=== PATIENT | female | born 1985 | race Caucasian/White ===

== ENCOUNTER 2020-06-01 03:12 | Outpatient (CLI) | payer BC, SELFPAY ==
[2020-06-01 12:53] LABS: ALT 38 U/L (14-59); AST 19 U/L (15-37); Albumin 3.9 g/dL (3.4-5.0); Alkaline Phosphatase 61 U/L (46-116); BUN 14 mg/dL (7-18); Bilirubin, Total 0.6 mg/dL (0.2-1.0); CREATININE 0.8 mg/dL (0.55-1.02); Calcium 8.8 mg/dL (8.5-10.1); Calculated LDL 51 mg/dL (<100); Chloride 106 mmol/L (98-107); Cholesterol 138 mg/dL (<200); Glucose 87 mg/dL (74-106); HDL Cholesterol 81 mg/dL (40-60); Potassium 3.9 mmol/L (3.5-5.1); Sodium 143 mmol/L (136-145); TSH (W/Ref FT4) 1.11 uIU/mL (0.36-3.74); Total Protein 7.4 g/dL (6.4-8.2); Triglyceride 33 mg/dL (<150)
== END 2020-06-01 03:13 | disposition home or self-care (01) ==
LOC: LBO 03:12
DX: Z00.00 Encounter for general adult medical examination without abnormal findings (principal); R00.2 Palpitations; R53.83 Other fatigue; Z13.220 Encounter for screening for lipoid disorders
CPT/HCPCS: 36415; 80053; 80061; 84443

== ENCOUNTER 2021-09-19 21:05 | Outpatient (REF) | payer BC, SELFPAY ==
[2021-09-19 20:50] LABS: Bilirubin Negative (Negative); Blood Large (Negative); Clarity Sl Cloudy (Clear); Glucose Negative (Negative); Ketones Negative (Negative); Leukocyte Esterase Moderate (Negative); Nitrite Negative (Negative); Urobilinogen 0.2 EU/dL (Up TO 0.2); pH 6.5 (5-8)
[2021-09-19 21:09] LABS: Epithelial Cells Few HPF (Negative); WBC >50 HPF (0-5)
[2021-09-19 21:10] LABS: Bacteria Few HPF (Negative); C & S Indicated? C&S Done As Ordered; Casts Negative LPF (Negative); Crystals Negative HPF (Negative); Mucus Negative (Negative)
== END 2021-09-19 21:06 | disposition home or self-care (01) ==
LOC: LBN 21:05
PROVIDERS: Visit Provider Nurse Practitioner Family
DX: N39.0 Urinary tract infection, site not specified (principal)
CPT/HCPCS: 87077; 81003; 81015; 87086; 87186

== ENCOUNTER 2022-01-11 02:19 | Outpatient (CLI) | payer BC, SELFPAY ==
--- NOTE | 2022-01-11 13:30 | DI.RAD_ITS ---
Exam(s) XR WRIST RT COMPLETE EXAM: XR WRIST RT COMPLETE CLINICAL HISTORY: CHRONIC RT WRIST JT PAIN, M25.531, LIKELY RELATED TO EDS TECHNIQUE: COMPARISON: No exams were available for comparison FINDINGS: Four views were obtained. There is an ulnar plus variance with apparent dorsal subluxation of the ul na at the radioulnar joint. No other significant abnormality of alignment seen. No bony abnormality seen. IMPRESSION: RADIATION DOSE DELIVERED: Total DLP
--- NOTE | 2022-01-11 13:52 | DI.RAD_ITS ---
Exam(s) XR HIP PELVIS ADULT BL EXAM: XR HIP PELVIS ADULT BL CLINICAL HISTORY: CHRONIC BILAT HIP PAIN, M25.551, M25.552, SACRAL PAIN, H/O EDS TECHNIQUE: COMPARISON: No exams were available for comparison FINDINGS: Three views were obtained. Cartilaginous joint spaces of the hips are well maintained. No bony or s oft tissue abnormality seen. IUD noted in pelvic midline. IMPRESSION: RADIATION DOSE DELIVERED: Total DLP
== END 2022-01-11 02:39 ==
LOC: DI 02:20
PROVIDERS: Visit Provider Nurse Practitioner Family
DX: M25.551 Pain in right hip (principal); M25.552 Pain in left hip; R93.6 Abnormal findings on diagnostic imaging of limbs
CPT/HCPCS: 73521; 73110

== ENCOUNTER 2022-07-20 00:22 | Outpatient (CLI) | payer BC, SELFPAY ==
--- NOTE | 2022-07-20 08:30 | DI.DEXA_ITS ---
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 No compression deformities identified. Left hip: Total T-Score: -0.5 Total Z-Score: -0.4 T- and Z-scores: Within normal limits. Lumbar Spine: Total T-Score: -0.9 Total Z-Score: -0.9 T- and Z-scores: Within normal limits. IMPRESSION: No evidence of osteoporosis.
== END 2022-07-20 00:42 ==
PROVIDERS: PCP Nurse Practitioner Family; Visit Provider Nurse Practitioner Family
DX: Q79.60 Ehlers-Danlos syndrome, unspecified (principal); Z13.820 Encounter for screening for osteoporosis
CPT/HCPCS: 77080

== ENCOUNTER 2023-04-02 04:59 | Outpatient (CLI) | payer BC, SELFPAY ==
[2023-04-02 09:34] LABS: Abs Immature Grans 0.01 10^3/uL (0.0-0.06); Absolute Basophil Count 0.04 10^3/uL (0.0-0.2); Absolute Eosinophil Count 0.04 10^3/uL (0.0-0.7); Absolute Lymphocyte Count 1.79 10^3/uL (1.2-3.4); Absolute Monocyte Count 0.35 10^3/uL (0.1-0.8); Absolute Neutrophil Count 2.94 10^3/uL (1.2-6.7); Basophils % 0.8; Eosinophils % 0.8; HGB 13.7 g/dL (11.2-15.7); Immature Grans % 0.2; Lymphocytes % 34.6; MCH 30.2 pg (27.0-33.0); MCHC 33.4 % (32.0-36.0); MCV 90 fL (80-95); MPV 8.3 fL (8.0-11.0); Monocytes % 6.8; Neutrophils % 56.8; Platelet Count 212 10^3/uL (130-400); RBC 4.54 10^6/uL (3.93-5.22); RDW 12.4 % (11.7-14.6); RDW-SD 41.1 fL; WBC 5.17 10^3/uL (4.4-10.8)
== END 2023-04-02 05:00 | disposition home or self-care (01) ==
LOC: LBO 04:59
PROVIDERS: PCP Nurse Practitioner Family; Visit Provider Obstetrics & Gynecology
DX: Z01.818 Encounter for other preprocedural examination (principal)
CPT/HCPCS: 36415; 86850; 86900; 86901; 85025

== ENCOUNTER 2023-04-03 10:52 | Day surgery (SDC) | payer BC, SELFPAY ==
[2023-04-03] VITALS (8 sets, daily range): BP systolic 93–104; BP diastolic 57–78; PULSE 53–82; RESP 12–22; TEMP 36.6–36.7; O2SAT 100; BMI 22.4
[2023-04-03] MEDS: Lactated Ringers 1,000 ML 125 ML IV (11:25)
--- NOTE | 2023-04-03 12:03 | W.ANESPRE ---
General Info Date of Service Date Performed: 04/03/23 Height: 5 ft 8 in Weight: 66.7 kg Body Mass Index (BMI): 22.4 Surgical Procedure: Operation Date: 04/03/23 12:40 Proposed Procedure Side Surgeon p Salpingectomy Laparoscopic Bilateral Re Kingston MD s Removal of IUD Re Kingston MD Meds Allergies and Home Medications Allergies Allergy/AdvReac Type Severity Reaction Status Date / Time influenza virus vaccine tvs AdvReac Mild rash Verified 04/03/23 11:12 (65 yr and up) [From Fluad (65yr+)(PF)] vaccine adjuvant emulsion AdvReac Mild rash Verified 04/03/23 11:12 [id number] [From Fluad (65yr+)(PF)] Home Medication Medication Instructions Recorded ibuprofen 200 mg tablet (Ibuprofen 600 mg PO PRN PRN 03/24/16 IB) levonorgestrel 21 mcg/24 hours (8 03/24/16 yrs) 52 mg intrauterine device (Mirena) dextroamphetamine-amphetamine ER 20 mg PO DAILY Transfer- prefer no 08/08/21 20 mg 24hr capsule,extend release further refills after 08/08/21 #30 caps melatonin 3 mg capsule 3 mg PO HS PRN 04/03/22 escitalopram oxalate 10 mg tablet 10 mg PO DAILY 02/08/23 (Lexapro) loratadine 10 mg tablet (Claritin) 10 mg PO DAILY 04/02/23 Current Visit Medications: Current Medications Generic Name Dose Route Start Last Admin Trade Name Freq PRN Reason Stop Dose Admin Ringer's Solution 1,000 mls @ 125 mls/hr 04/03/23 06:00 04/03/23 11:25 IV 04/03/23 23:59 125 mls/hr INFUSION JUAN Administration IV Miscellaneous Supplies 1 each 04/03/23 06:00 Iv Access IV 04/03/23 23:59 DIRECTED JUAN Sodium Chloride 0 ml 04/03/23 06:00 Normal Saline Flush 10 Ml Syr IV 04/03/23 23:59 PRN PRN Sodium Chloride 0 ml 04/03/23 06:00 Normal Saline 10 Ml Vial IJ 04/03/23 23:59 DIRECTED PRN Sterile Water 0 ml 04/03/23 06:00 Water,Injection,Sterile 10 Ml Vial IJ 04/03/23 23:59 DIRECTED PRN PFSH Active Problems Active Problems: Problem Status Onset Code Subluxation of distal radial-ulnar joint S63.013A Knee pain, left M25.562 ADD (attention deficit disorder) F98.8 Sleep disorder G47.9 Depression with anxiety 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 states she had a brief spell but never turned into anything more. Headache (~04/01/14) Tobacco Smoking/Tobacco Use Status: Current-Occasional Tobacco Type: cigarettes Passive smoking exposure: Yes Second hand exposure: Yes Alcohol Alcohol Intake: current Alcohol intake frequency: a few times a month Alcohol type: hard liquor Substance Use Substance use: Occasionally Substance use type: marijuana Counseling provided: none Vital Signs and Lab Results Vital Signs Most Recent Vital Signs in EMR: Most Recent Vital Signs Temp Pulse Resp BP Pulse Ox 36.7 C 82 16 93/78 L 100 04/03/23 11:00 04/03/23 11:00 04/03/23 11:00 04/03/23 11:00 04/03/23 11:00 Point of Care Results Point of Care Results: POC- Test(urine) Negative 04/03/23 11:24 Lab Results Blood Type / Crossmatch: Patient ABO/Rh B Positive 04/02/23 Antibody Screen NEGATIVE 04/02/23 Complete Blood Count: White Blood Count 5.17 10^3/uL (4.4-10.8) 04/02/23 09:24 Red Blood Count 4.54 10^6/uL (3.93-5.22) 04/02/23 09:24 Hemoglobin 13.7 g/dL (11.2-15.7) 04/02/23 09:24 Hematocrit 41.0 % (36.0-46.0) 04/02/23 09:24 Platelet Count 212 10^3/uL (130-400) 04/02/23 09:24 Complete Metabolic Panel: No Data to Display Liver Function Panel: No Data to Display Coagulation Panel: No Data to Display Cardiac Panel: No Data to Display Arterial Blood Gas: No Data to Display Venous Blood Gas: No Data to Display Pancreas Panel: No Data to Display Thyroid Panel: No Data to Display Infectious Disease: No Data to Display Blood Cultures: No Data to Display Toxicology Panel: No Data to Display Panel: No Data to Display Imaging and Studies Imaging and Studies Study information below may be from another EMR and interpreted by another provider. Please see original notes in EMR for more complete details. Echocardiogram Summary: 03/30: LVEF 65-70%. no WMA. no valve issues. Anesthesia Assessment and Plan Anesthesia History Personal History: No History of Anesthesia Complications Family History: No Family History of Anesthesia Complications Exercise Tolerance Exercise Tolerance: Metabolic Equivalents>4 Pertinent Negatives Pertinent Negatives: No Symptoms of GERD, No Major Cardiovascular Symptoms or Complaints, No Major Pulmonary Symptoms or Complaints and No History of CVA/TIA Cardiac & Pulmonary Exam Cardiac Exam: Normal S1/S2 Heart Sounds Pulmonary Exam: Clear Bilateral Breath Sounds Implantable Cardiac Device Does patient have a Pacemaker or an ICD?: No Airway Exam Known Difficult Airway: No Mallampati Class: 2 Mouth Opening: Normal (> 3cm) Thyromental Distance: Greater than 3 cm Neck Range of Motion: Full ROM Neck Circumference: Normal Teeth Condition: Normal Dentition ASA Classification ASA Score: ASA 2 Emergency Case?: No NPO Status NPO Status: NPO Clears >2 hours, Solids >8 hours Status Status: Negative HCG Anesthesia Plan Resuscitation Status: Full Code Anesthesia Technique: General Anesthesia Airway Planned: Endotracheal Tube Monitors Used: Standard Monitors Preoperative Comments:: 37 yo female for lap salping. Sig PMHx: EDS/POTS, depression/anxiety, Raynaud's, headache. smoker, occ EtOH/cannabis.
--- NOTE | 2023-04-03 14:27 | FALL_PTH ---
PATIENT: Lavern Breen LOC: [facility] U#:[id number] AGE/SX: 37/F ROOM: RE04/03/[address]: Re Kingston MD : 1985 BED: DIS: 04/03/2023 SPEC #: [id number] RECD: 04/03/23 17:18 STATUS: PAO REJesus #: [id number] RENAY: 04/03/23 14:[address]: Re Kingston DEPT: Surgical Specimen RECD BY: Swati Gonzalez ENTERED: 04/03/23 17:20 SP TYPE: Fall OTHR DR: KENNY ORTIZ, WILFREDO Tissues: 1 - FALLOPIAN TUBE (STERILIZATION) 2 - FALLOPIAN TUBE (STERILIZATION) Procedures: GROSS AND MICRO LEVEL 2 Comments: [id number]
[2023-04-03] MEDS: Bupivacaine 0.25% Pres-Free 30 ML VIAL (14:46)
--- NOTE | 2023-04-03 15:00 | W.PM.OP ---
Date of service: 04/03/23 Time of Service: 14:00 Operative Note Operative Note PRE-OP DIAGNOSIS: desires permanent sterilization POST-OP DIAGNOSIS: same PROCEDURE: Laparoscopic bilateral salpingectomy with IUD removal SURGEON: Re Kingston ASSISTING SURGEON: Mari Haney Refer to Anesthesia Record ESTIMATED BLOOD LOSS: 20 COMPLICATIONS: None Patient was transported to: PACU Patient's condition: stable Indications: Pt with desired parity. Counseled on other options. Findings: Normal appearing external genitalia, vagina and cervix. Normal appearing uterus, ovaries and tubes. No obvious abnormalities of the lower abdomen and pelvis. Procedure Description: After informed consent was signed the patient was taken to the operating room and given general anesthesia.? SCDs were placed on her legs.? She was prepped and draped in the dorsal lithotomy position in the [facility].? Her bladder was drained of urine prior to arrival in the OR. A speculum was placed into the vagina to expose the cervix. The IUD strings were grasped and the IUD was easily removed intact. A HexAirbotlka manipulator was placed into the cervix. The speculum was removed. Gloves were changed and attention was turned to the abdomen. The infraumbilical fold was grasped and injected with 0.25% marcaine with epinephrine. A 5mm incision was made in the infraumbilical fold with the scalpel. A hemostat was used to bluntly dissect the subcuticular layers. The fascia was grasped with jay clamps and incised. The incision was extended with blunt pressure. The peritoneum was grasped and incised with metzembaum scissors. The visiport was used to enter the abdomen under direct visualization. Once entrance to the abdominal cavity was confirmed the CO2 was turned on and the abdomen was insufflated. Two lateral 5mm ports were then placed under direct visualization. The left tube was identified and followed to the fimbriated end. The tube was grasped and elevated and the mesosalpinx was clamped, cauterized and cut with the ligasure device. The was continued along the length of the tube. The proximal end of the tube was then transected with the ligasure. Good hemostasis was noted. The right tube was then identified and followed to the fimbriated end. The tube was grasped and elevated and the mesosalpinx was clamped, cauterized and cut with the ligasure device. The was continued along the length of the tube. The proximal end of the tube was then transected with the ligasure. Good hemostasis was noted on both sides. The tubes were removed individually through the ports and noted to be intact. The ports were removed. The gas was released from the abdomen. The skin incisions were then closed with 4-0 vicryl. Mastisol and steristrips were placed. The manipulator was removed. The patient was placed back into the supine position.? She was moved to the stretcher and taken to the recovery room in stable condition.
--- NOTE | 2023-04-03 15:15 | W.ANESPOSTOP ---
Postoperative Evaluation Date, Time and Location Date Performed: 04/03/23 Time Performed: 15:15 Patient Location: PACU Vital Signs Most Recent Imported Vital Signs: Most Recent Vital Signs Temp Pulse Resp BP Pulse Ox 36.7 C 82 16 93/78 L 100 04/03/23 11:00 04/03/23 11:00 04/03/23 11:00 04/03/23 11:00 04/03/23 11:00 Assessment Mental Status: Awake (Alert & Oriented to Patient Baseline) Airway and Respiratory Function: Patent airway with normal (patient baseline) respiratory exam Cardiovascular Function: Hemodynamically Stable Hydration Status: Adequately Hydrated Nausea & Vomiting: No Nausea or Vomiting Pain: Pain is tolerable per patient Peripheral Nerve Block: Patient did not receive a nerve block
--- NOTE | 2023-04-03 17:48 | DSE_ITS ---
Date of service: 04/03/23 Time of Service: 15:00 Discharge Plan Disposition Patient Disposition: Home Discharge Details Attending Provider: Re Kingston Primary Care Provider: KENNY ORTIZ Home Meds and New Rx's Prescriptions: No Action escitalopram oxalate [Lexapro] 10 mg tablet 10 mg PO DAILY dextroamphetamine-amphetamine 20 mg capsule,extended release 24hr 20 mg PO DAILY MDD 20mg Qty: 30 0RF Patient Comments: increased to 25mg melatonin 3 mg capsule 3 mg PO HS PRN Mirena 1 EACH intrauterine device ibuprofen [Ibuprofen IB] 200 MG tablet 600 mg PO PRN PRN loratadine [Claritin] 10 mg tablet 10 mg PO DAILY Discharge Instructions Stand Alone Forms: Anesthesia Discharge Inst., D[facility] ([facility]) Referrals: Re Kingston MD [ [facility] STAFF PHYSICIAN] - 04/12/23 3:20 pm Activity:: Activity as Tolerated Remove Dressings/Wound Care:: 24 hours Shower/Bathe:: 24 hours Diet:: As Tolerated Discharge Orders Discharge Orders: Discharge Order (Routine); Ordered 04/03/23 Ordered By: Re Kingston Discharge Data Discharge Date/Time-TO BE ENTERED AT DEPARTURE: 04/03/23 16:36 DS: Summary Time Spent with Patient providing and/or coordinating discharge services: Less than 30 minutes Status at Discharge Functional status at discharge: independent ambulation Overall status at discharge: patient is back to baseline Mental Status: mental status grossly normal Speech and Movement: speech and movement normal Mood: congruent mood Affect: normal affect Quality:SDOH Health Related Social Needs: No Data to Display Exam Psych Mental Status: mental status grossly normal Speech and Movement: speech and movement normal Mood: congruent mood Affect: normal affect DS: Data Vitals/I&O Vitals and I&O: Vital Signs Temperature 98.1 F 04/03/23 16:10 Pulse 60 04/03/23 16:10 Pulse Rhythm Regular 04/03/23 11:00 Respiratory Rate 16 04/03/23 16:10 Respiratory Depth Normal 04/03/23 11:00 Blood Pressure 99/57 L 04/03/23 16:10 Pulse Oximetry 100 04/03/23 16:10 Respiratory End-tidal CO2 41 04/03/23 15:31 Oxygen Delivery Method Room Air 04/03/23 16:10 Oxygen Flow Rate 0 04/03/23 11:00 Pain Level 3 04/03/23 16:10 Intake & Output 04/02/23 04/03/23 04/03/23 23:59 11:59 23:59 Intake Total 970.833 / 970.833 Balance 970.833 / 970.833 Weight 147 lb 0.773 oz 147 lb 0.773 oz Intake: IV 820.833 / 820.833 Oral 150 / 150 Other: Emesis Description None PFSH All Active Problems Subluxation of distal radial-ulnar joint (Acute) Knee pain, left (Chronic) ADD (attention deficit disorder) (Chronic) Initial Dx by [facility] - treating since 08/15/2020 Sleep disorder (Chronic) Depression with anxiety (Acute) Mayco-Danlos syndrome (Acute) Insomnia (Acute ~09/26/15) Fatigue (Acute ~09/26/15) Back pain (Chronic ~09/26/15) low lumbar Hip pain (Chronic ~04/22/14) left Arthralgia (Acute ~04/01/14) Medical History Heart palpitations Pt. states she had a brief spell but never turned into anything more. Sterilization consult POTS (postural orthostatic tachycardia syndrome) Raynauds syndrome Eating disorder Headache (~04/01/14) Family History Mother Alcohol abuse Hyperlipidemia Father Alcohol abuse Depression Diabetes Sister Depression Sister Depression Sister Depression Brother Alcohol abuse Depression Brother Alcohol abuse Depression Brother Depression Maternal Grandfather , 90's Hyperlipidemia Paternal Grandfather Depression Maternal Grandmother , 90's Cancer Paternal Grandmother No problems noted. Social History Smoking/Tobacco Use Status: Current-Occasional Tobacco Type: cigarettes Tobacco: How many years used: 15 Quit status: considering quitting Second Hand Exposure: Yes Smoking risk assessment performed?: Yes Alcohol Intake: current Alcohol Intake frequency: a few times a month Alcohol type: hard liquor Drug use: Occasionally Substance use type: marijuana Counseling provided: none Caregiver/Support person: No Household members: significant other and children Housing: house Communication Needs: None Do you need help understanding health information?: Never Pets and animals: Yes Pets and animals: dog(s) Sexually active: Yes Do you think of yourself as: bisexual Current gender identity: female What is your relationship status?: living with partner How often do you talk on the phone with friends or family?: once per week How often do you get together with friends or relatives?: never Do you belong to any clubs or organized social groups?: no Panel score (0-1 are the most socially isolated patients): 1 What type of physical activity do you participate in: walking, weight lifting, resistance training and yoga Duration: 45-60 minutes/day Frequency: daily Mohini/Hinduism: None Special mohini needs: No Seatbelt use: always Helmet use: Yes Helmet use: always Drive intox or ride w/intox stock car driver: No Do you feel safe at home: Yes Do you feel safe in your relationship?: Yes Time Spent with Patient Time Spent with Patient: <45 minutes Time was spent: preparing to see the patient(eg.review tests), obtaining and/or reviewing separately otained hiistory, referring, communicating with other health care technician and counseling the patient
== END 2023-04-03 16:36 | disposition home or self-care (01) ==
PROVIDERS: PCP Nurse Practitioner Family; Visit Provider Obstetrics & Gynecology
PROC: (CPT 58661; principal; 2023-04-03 12:30)
PROC: (CPT 58661; 2023-04-03 12:30)
DX: Z30.2 Encounter for sterilization (principal); I73.00 Raynaud's syndrome without gangrene; G90.A Postural orthostatic tachycardia syndrome [POTS]; F17.210 Nicotine dependence, cigarettes, uncomplicated; F12.90 Cannabis use, unspecified, uncomplicated
CPT/HCPCS: 58661; 58301; 81025; 88302; J0131; J0665; J1100; J1885; J2001; J2250; J2405; J2704; J3475

== ENCOUNTER → 2023-04-15 15:03 | Outpatient (CLI) | payer BC, SELFPAY ==
--- NOTE | 2023-04-15 15:49 | DI.RAD_ITS ---
Exam(s) XR LUMBAR SPINE COMPLETE EXAM: XR LUMBAR SPINE COMPLETE CLINICAL HISTORY: DINESH-DANLOS SYNDROME Q79.60 DIFFICULTY PALPATING L3 L4 L5, PRIOR TO. TECHNIQUE: 2D digital imaging was performed. Five views. COMPARISON: CR XR HIP PELVIS ADULT BL from 01/11/2022 CR XR DEXA BONE DENSITY W/WO TAY from 07/20/2022 FINDINGS: BONES: No fracture or destructive lesion. Unilateral left L5 spondylolysis. Vertebral body heights are maintained. Minimal facet hypertrophy identified at L5-S1. DISKS: Intervertebral disc spaces are maintained. ALIGNMENT: Lumbar spinal alignment is within normal limits. SOFT TISSUE: Normal. IMPRESSION: Unilateral L5 spondylolysis. No spondylolisthesis. Disc spaces are maintained. DATA REPOSITORY: RADIATION DOSE DELIVERED:
== END ==
PROVIDERS: PCP Nurse Practitioner Family; Visit Provider Nurse Practitioner Family
DX: M43.16 Spondylolisthesis, lumbar region (principal)
CPT/HCPCS: 72110

== ENCOUNTER 2023-08-12 11:15 | Emergency (ER) | payer BC, SELFPAY ==
[2023-08-12 11:19] VITALS: BP 109/72; PULSE 73; RESP 16; TEMP 36; O2SAT 100
--- NOTE | 2023-08-12 12:36 | NUR.NOTE ---
Referral given to Care Management to [facility] [place] [facility] [place] history teresita dowling with recurrent jaw dislocations for next available. Nursing Note:
[2023-08-12 12:46] VITALS: BP 109/72; PULSE 73; RESP 16; TEMP 36; O2SAT 100
--- NOTE | 2023-08-12 15:15 | ED.GENADUL_ITS ---
Discharge Plan Disposition Patient Disposition: Home Discharge Details Clinical Impression: Jaw pain, Mayco-Danlos syndrome Primary Care Provider: KENNY ORTIZ ED Provider: Lukas Reynoso Home Meds and New Rx's Prescriptions: No Action escitalopram oxalate [Lexapro] 10 mg tablet 10 mg PO DAILY dextroamphetamine-amphetamine 20 mg capsule,extended release 24hr 25 mg PO DAILY Patient Comments: increased to 25mg melatonin 3 mg capsule 3 mg PO HS PRN ibuprofen [Ibuprofen IB] 200 MG tablet 600 mg PO PRN PRN loratadine [Claritin] 10 mg tablet 10 mg PO DAILY amitriptyline 10 mg tablet 10 mg PO DAILY famotidine 20 mg tablet 10 mg PO BID Discharge Instructions Additional Instructions: * TAKE Tylenol or Motrin as needed for pain * Wearing dental guard or David wrap may be helpful particularly while sleeping * a referral has been sent to [facility] for follow-up, they will contact you for appointment Discharge Data Discharge Date/Time-TO BE ENTERED AT DEPARTURE: 08/12/23 12:49 HPI General Date/Time Provider Initiated Documentation: 08/12/23 11:57 . Limitations to Documentation: no limitations . Information obtained by: patient . HPI Narrative: 37-year-old female with past medical history of Mayco-Danlos syndrome presents for evaluation of left-sided jaw pain. She reports that she has a history of frequent jaw dislocations and she is worried that there may be an issue with her jaw at this time. She reports that it has been bothering her for the last few days. She is eating and drinking normally. She has no difficulty talking, but states that she does not feel like she can open her mouth widely is normal. Related Data Home Medications Medication Instructions Recorded Confirmed ibuprofen 200 mg tablet (Ibuprofen 600 mg PO PRN PRN 03/24/16 08/12/23 IB) melatonin 3 mg capsule 3 mg PO HS PRN 04/03/22 08/12/23 escitalopram oxalate 10 mg tablet 10 mg PO DAILY 02/08/23 08/12/23 (Lexapro) loratadine 10 mg tablet (Claritin) 10 mg PO DAILY 04/02/23 08/12/23 dextroamphetamine-amphetamine ER 25 mg PO DAILY Transfer- prefer no 04/12/23 08/12/23 20 mg 24hr capsule,extend release further refills after 08/08/21 amitriptyline 10 mg tablet 10 mg PO DAILY 08/12/23 08/12/23 famotidine 20 mg tablet 10 mg PO BID 08/12/23 08/12/23 Allergies Allergy/AdvReac Type Severity Reaction Status Date / Time influenza virus vaccine tvs AdvReac Mild rash Verified 08/12/23 11:21 (65 yr and up) [From Fluad (65yr+)(PF)] vaccine adjuvant emulsion AdvReac Mild rash Verified 08/12/23 11:21 [id number] [From Fluad (65yr+)(PF)] General Stated Complaint: DentalOral TONE: 4 Exam Narrative Exam Narrative: Review of Systems: All systems reviewed & are unremarkable except as noted in HPI and below Well-developed, no acute distress NCAT HEENT exam unremarkable, no appreciated mandible dislocation seems to have full range of motion without limitation PERRL, normal conjunctiva RRR Unlabored respiratory effort Nondistended abdomen Extremities w/o deformity, no cyanosis, no edema No rashes or lesions. no focal neurologic deficits Appropriate mood and affect Course Vital Signs Vital signs: Vital Signs Temperature 36.0 C L 08/12/23 11:19 Pulse 73 08/12/23 11:19 Respiratory Rate 16 08/12/23 11:19 Blood Pressure 109/72 08/12/23 11:19 Pulse Oximetry 100 08/12/23 11:19 Temperature 36.0 C L 08/12/23 12:46 Temperature Source Temporal Artery Scan 08/12/23 12:46 Pulse 73 08/12/23 12:46 Respiratory Rate 16 08/12/23 12:46 Respiratory Effort Normal, Non-Labored 08/12/23 11:23 Blood Pressure 109/72 08/12/23 12:46 Blood Pressure Position Sitting 08/12/23 12:46 Pulse Oximetry 100 08/12/23 12:46 Oxygen Delivery Method Room Air 08/12/23 12:46 Oxygen Flow Rate 0 08/12/23 12:46 Medical Decision Making Emergent evaluation of left-sided jaw pain. Patient reports history of dislocation. She states that she recently dislocated and relocated by herself as she usually does but reports ongoing pain for the last 2 days. On my examination I do not appreciate that the jaw remains dislocated, there seems to be normal and appropriate range of motion still intact. My suspicion is that she has some ongoing going degeneration in the joint with these recurrent dislocations. Advised Tylenol and I have referred her to [facility] for follow-up. Medical Records Medical records reviewed: Yes I reviewed the patient's medical records. Quality:[facility] Health Related Social Needs: No Data to Display PFSH All Active Problems Jaw pain (Acute) Subluxation of distal radial-ulnar joint (Acute) Knee pain, left (Chronic) ADD (attention deficit disorder) (Chronic) Initial Dx by [facility] - treating since 08/15/2020 Sleep disorder (Chronic) Depression with anxiety (Acute) Mayco-Danlos syndrome (Acute) Insomnia (Acute ~09/26/15) Fatigue (Acute ~09/26/15) Back pain (Chronic ~09/26/15) low lumbar Hip pain (Chronic ~04/22/14) left Arthralgia (Acute ~04/01/14) Medical History POTS (postural orthostatic tachycardia syndrome) Raynauds syndrome Eating disorder Heart palpitations Pt. states she had a brief spell but never turned into anything more. Headache (~04/01/14) Surgical History History of laparoscopy 04/03/23: B/l Salpingectomy for sterilization w/ Dr. Kingston Family History Mother Alcohol abuse Hyperlipidemia Father Alcohol abuse Depression Diabetes Sister Depression Sister Depression Sister Depression Brother Alcohol abuse Depression Brother Alcohol abuse Depression Brother Depression Maternal Grandfather , 90's Hyperlipidemia Paternal Grandfather Depression Maternal Grandmother , 90's Cancer Paternal Grandmother No problems noted. Social History Smoking/Tobacco Use Status: Current-Occasional Tobacco Type: cigarettes Tobacco: How many years used: 15 Quit status: considering quitting Second Hand Exposure: Yes Smoking risk assessment performed?: Yes Alcohol Intake: current Alcohol Intake frequency: a few times a month Alcohol type: hard liquor Drug use: Occasionally Substance use type: marijuana Counseling provided: none Caregiver/Support person: No Household members: significant other and children Housing: house Communication Needs: None Do you need help understanding health information?: Never Pets and animals: Yes Pets and animals: dog(s) Sexually active: Yes Do you think of yourself as: bisexual Current gender identity: female What is your relationship status?: living with partner How often do you talk on the phone with friends or family?: once per week How often do you get together with friends or relatives?: never Do you belong to any clubs or organized social groups?: no Panel score (0-1 are the most socially isolated patients): 1 What type of physical activity do you participate in: walking, weight lifting, resistance training and yoga Duration: 45-60 minutes/day Frequency: daily Mohini/Confucianist: None Special mohini needs: No Seatbelt use: always Helmet use: Yes Helmet use: always Drive intox or ride w/intox entry driver operator: No Do you feel safe at home: Yes Do you feel safe in your relationship?: Yes History History 0 Para Hx # Term Pregnancies Multiple births Hx # Pregnancies Ectopic pregnancies AB induced Hx Number of Living Children AB spontaneous PAWSS Have you Been Recently Intoxicated or Drunk Within the Last 30 days?: No Have you Ever Experienced Previous Episodes of Alcohol Withdrawal?: No Have you ever Experienced Withdrawal Seizures?: No Have you ever Experienced Delirium Tremens(DT)s?: No Have you ever undergone Alcohol Rehabilitation Treatment (i.e, inpt ot outpatient treatment programs)?: No Have you ever Experienced Blackouts?: No Have you ever Combined Alcohol with other Downers within the last 90 days?: No Have you ever Combined Alcohol with any other Substance of Abuse during the last 90 days?: No Positive Blood Alcohol level on Presentation? [PCS.BAL]: No Evidence of Increased Autonomic Activity (i.e. HR>120, tremor, sweating, agitation, nausea)?: No Result: 0
== END 2023-08-12 12:49 | disposition home or self-care (01) ==
PROVIDERS: Emergency Provider Emergency Medicine; PCP Nurse Practitioner Family
DX: R68.84 Jaw pain (principal); Q79.60 Ehlers-Danlos syndrome, unspecified
CPT/HCPCS: 99281; 99282

== ENCOUNTER 2023-09-26 11:43 | Outpatient (CLI) | payer BC, SELFPAY ==
[2023-09-26 12:33] LABS: Abs Immature Grans 0.02 10^3/uL (0.0-0.06); Absolute Basophil Count 0.05 10^3/uL (0.0-0.2); Absolute Eosinophil Count 0.06 10^3/uL (0.0-0.7); Absolute Lymphocyte Count 2.03 10^3/uL (1.2-3.4); Absolute Monocyte Count 0.44 10^3/uL (0.1-0.8); Absolute Neutrophil Count 4.71 10^3/uL (1.2-6.7); Basophils % 0.7 %; Eosinophils % 0.8 %; HCT 39.6 % (36.0-46.0); HGB 13.2 g/dL (11.2-15.7); Immature Grans % 0.3 %; Lymphocytes % 27.8 %; MCH 30.8 pg (27.0-33.0); MCHC 33.3 % (32.0-36.0); MCV 92 fL (80-95); MPV 8.3 fL (8.0-11.0); Neutrophils % 64.4 %; Platelet Count 272 10^3/uL (130-400); RBC 4.29 10^6/uL (3.93-5.22); RDW 12.7 % (11.7-14.6); WBC 7.31 10^3/uL (4.4-10.8)
[2023-09-26 13:54] LABS: ALT 25 U/L (14-59); AST 14 U/L (15-37); Albumin 3.6 g/dL (3.4-5.0); Alkaline Phosphatase 61 U/L (46-116); Anion Gap 9.9 mmol/L (3-11); BUN 16 mg/dL (7-18); Bilirubin, Total 0.43 mg/dL (0.2-1.0); CO2 25.1 mmol/L (21.0-32.0); CREATININE 0.7 mg/dL (0.55-1.02); Calcium 9.1 mg/dL (8.5-10.1); Chloride 105 mmol/L (98-107); Estimated GFR 114.88 (mL/min/1.73m2); Glucose 99 mg/dL (74-106); Potassium 4.1 mmol/L (3.5-5.1); Sodium 140 mmol/L (136-145); TSH (W/Ref FT4) 0.86 uIU/mL (0.36-3.74); Total Protein 6.8 g/dL (6.4-8.2)
[2023-09-26 18:28] LABS: Iron 220 ug/dL (50-170); Total Iron Binding Capacity 318 ug/dL (250-450); Transferrin Sat 69 % (15-50)
[2023-09-26 18:45] LABS: Ferritin 50 ng/mL (8-252); Folate 11.5 ng/mL (8.6-20.0); Vitamin B12 302 pg/mL (193-986)
[2023-09-30 20:06] LABS: Anaplasma phagocytophilum Negative (Negative); B. miyamotoi PCR Negative (Negative); Babesia divergens/MO-1 Negative (Negative); Babesia duncani Negative (Negative); Babesia microti Negative (Negative); Ehrlichia chaffeensis Negative (Negative); Ehrlichia ewingii/canis Negative (Negative); Ehrlichia muris eauclairensis Negative (Negative)
== END 2023-09-26 11:44 | disposition home or self-care (01) ==
LOC: LBO 11:44
PROVIDERS: PCP Nurse Practitioner Family; Visit Provider Psychiatry & Neurology Psychiatry
DX: F90.2 Attention-deficit hyperactivity disorder, combined type (principal); R53.82 Chronic fatigue, unspecified; F41.1 Generalized anxiety disorder; Q79.62 Hypermobile Ehlers-Danlos syndrome; F33.40 Major depressive disorder, recurrent, in remission, unspecified
CPT/HCPCS: 36415; 80053; 87798; 82607; 82728; 82746; 83540; 83550; 83735; 84443; 85025